=== PATIENT | female | born 1940 | race Caucasian/White ===

== ENCOUNTER → 2016-10-15 | Outpatient (CLI) | payer OTHER ==
[~2016-10-15] MED LIST: ACEROLA C500 M2 PO; ACTOS30 MG; ACTOS30 MG PO; ALBUTEROL SULF8.5 GM IH; ALKA-SELTZER H1 EAC1 PO; ALLEGRA180 MG PO; ALTACE10 MG PO; ANORO ELLIPTA1 EACH IH; ANTIVERT25 MG PO; ANUSOL HC,ANUCO25 MG PR; ASCORBIC ACID500 M3 PO; ASPIR-LOW81 MG PO; Antivert PO; Ascorbic Acid,Ester- PO; Aspirin E.C. PO; B COMPLETE1 EACH PO; BENTYL20 MG PO; BENZONATATE200 MG PO; Bactrim,Septra DS 80 PO; Benzonatate PO; CALCARB 600 W-1 EACH PO; CALCIUM 500 +1 EAC4 PO; CALCIUM 500 +1 EACH PO; CETIRIZINE HCL10 M1 PO; CIPRO500 MG PO; CLEOCIN300 MG PO; CLINDAMYCIN HC300 MG PO; COLACE100 MG PO; COUMADIN,JANTOVE4 MG PO; Chronulac,Cephulac,E PO; Claritin,Alavart PO; DAILY VITAMIN1 EAC8 PO; DARVOCET-N 1001 EACH PO; DIAZEPAM5 MG PO; DILAUDID2 MG PO; Dulcolax PO; ECOTRIN81 M1 PO; ELAVIL25 MG PO; ENULOSE10 GM/15 M PO; ENULOSE10 GM/151 PO; ERYTHROMYC1 APPLICAT BOTH EYES; ERYTHROMYCIN O3.5 GM BOTH EYES; Elavil PO; FEOSOL325 MG PO; FLAGYL500 MG PO; FLEXERIL10 MG PO; FLEXERIL5 MG PO; FLOVENT 44120 INHALA IH; FLOVENT DISKUS1 DIS2 IH; FOLIC ACID1 MG PO; Flonase BOTH NARES; Flovent 44 mcg IH; Folic Acid PO; Folvite PO; GABAPENTIN300 MG PO; GLIPIZIDE10 MG PO; GLUCOTROL XL10 MG PO; GLUCOTROL10 MG PO; GLUCOTROL5 MG PO; GLYBURID-METFO1 EAC2 PO; JANUMET 50/11 TABLET PO; JANUVIA100 MG PO; LIDOCAINE HCL20 ML MM; LIDOCAINE700 MG TD; LIDODERM 5% P1 PATCH TD; LIPITOR20 MG; LIPITOR40 MG PO; LOW DOSE ASPIRI81 M1 PO; LYRICA25 MG PO; LYRICA50 MG PO; Lopressor PO; MAGNESIUM CITR296 M1 PO; MECLIZINE HCL25 M3 PO; MECLIZINE HCL25 MG PO; METAMUCIL PACKE1 PKT PO; METOPROLOL SUCC25 MG PO; METOPROLOL TART25 MG PO; METRONIDAZOLE500 MG PO; Metoprolol Tartrate PO; NAPROSYN500 MG PO; NASONEX17 GM NS; NATURAL BALANCE15 ML BOTH EYES; NEURONTIN300 MG PO; NEXIUM40 MG PO; NITROGLYCERIN0.4 MG SL; NITROQUICK0.4 MG SL; NITROSTAT,NITR0.4 M1 SL; NITROSTAT0.4 MG SL; NORCO 5/3251 TABLET PO; Nitrostat,NitroQuick SL; OXAYDO5 MG PO; OXYCODONE HCL5 MG PO; Oscal 500 w/Vitamin PO; Oyst-Cal D, Oscal W/ PO; PERCOCET 5/31 TABLET PO; PRAVASTATIN SOD40 MG PO; PROAIR HFA8.5 GM IH; PROAIR RESPICL90 MCG IH; PROTONIX40 MG PO; PROVENTIL HFA6.7 GM IH; PYRIDOXINE HCL100 MG PO; Protonix PO; Proventil,Ventolin H IH; RAMIPRIL10 MG PO; SINGULAIR10 MG PO; SPIRIVA RESPIMAT4 GM IH; Singulair PO; TESSALON PERLE100 MG PO; TESSALON200 MG PO; THERAGRAN1 TABLET PO; TRADJENTA5 MG PO; TRAMADOL HCL50 MG PO; TRIAMTERENE-HC1 EACH PO; TRICOR145 MG PO; Tessalon Perle PO; Theragran PO; Tylenol Extra Streng PO; ULTRAM50 MG PO; VALIUM5 MG PO; VENTOLIN HFA18 GM IH; VICODIN 5-3001 EACH PO; VICODIN,LORT1 TABLET PO; Vicodin,Norco 5/325 PO; Vitamin B Complex PO; ZOFRAN ODT8 MG PO; ZOFRAN4 MG PO; Zeasorb Antifungal T TP; [UNRECOGNIZED DRUG - OTHER] PO
[2016-10-15 08:48] LABS: HEMATOCRIT 37.4 % (36.0-46.0); MCH 30.4 PG (29.0-34.0); MCHC 32.9 G/DL (30.0-36.0); MCV 92.6 FL (83-99); MEAN PLAT.VOLUME 8.8 uM^3 (9.5-12.4); PLATELET COUNT 178 K/uL (156-360); RBC DIS.WIDTH-CV 14.3 % (11.8-14.6); RBC DIS.WIDTH-SD 48.5 % (39-53); RED BLOOD COUNT 4.04 M/uL (3.80-5.20); WHITE BLOOD COUNT 10.1 K/uL (4.1-10.2)
[2016-10-15 09:05] LABS: INTER. NORMALIZED RATIO 1.1; PROTHROMBIN TIME 11.2 (9.2-11.2); PTT 27.3 (25-32)
== END | disposition home or self-care (01) ==
LOC: OPR 10-07 09:00 → EDSTATUS 10-07 09:00 → OPR 08:16
PROVIDERS: Internal Medicine Pulmonary Disease
PROC: 0BBJ3ZX Excision of Left Lower Lung Lobe, Percutaneous Approach, Diagnostic (ICD-10-PCS; principal; 2016-10-15)
DX: C34.32 Malignant neoplasm of lower lobe, left bronchus or lung (principal); Z87.891 Personal history of nicotine dependence; J84.9 Interstitial pulmonary disease, unspecified; I51.9 Heart disease, unspecified; E11.9 Type 2 diabetes mellitus without complications; I10 Essential (primary) hypertension; Z82.49 Family history of ischemic heart disease and other diseases of the circulatory system; Z88.8 Allergy status to other drugs, medicaments and biological substances; Z88.5 Allergy status to narcotic agent
CPT/HCPCS: 71010; 77012; 85027; 85610; 85730; 87070; 87075; 87205; 88305; 88341 TC; 88342 TC; J3010

== ENCOUNTER 2016-10-18 10:18 | Emergency (ER) | payer OTHER ==
[~2016-10-18] VITALS: Ht 162.6 cm; Wt 110.6 kg
[2016-10-18] MEDS ORDERED: NORCO 5/3251 TABLET PO (13:09)
[2016-10-18] MEDS ORDERED: TRAMADOL HCL50 MG PO (13:33)
[2016-10-18 13:44] VITALS: BP 140/65
== END 2016-10-18 13:45 | disposition home or self-care (01) ==
LOC: EME 10:18
DX: S46.001A Unspecified injury of muscle(s) and tendon(s) of the rotator cuff of right shoulder, initial encounter (principal); M25.511 Pain in right shoulder; X50.9XXA Other and unspecified overexertion or strenuous movements or postures, initial encounter; Y93.E9 Activity, other interior property and clothing maintenance; Z88.6 Allergy status to analgesic agent
CPT/HCPCS: 73030; 93005; 99281; 99284; J2270

== ENCOUNTER 2016-11-28 00:06 | Observation (INO) | payer OTHER ==
[~2016-11-28] VITALS: Ht 152.4 cm; Wt 107.6 kg
[2016-11-28 01:22] LABS: EOSINOPHIL (%) 2.4 % (0-5); EOSINOPHIL COUNT 0.2 K/uL (0-0.3); HEMATOCRIT 38.6 % (36.0-46.0); IMMATURE GRANULOCYTE (%) 0.7 % (0.0-0.7); IMMATURE GRANULOCYTE COUNT 0.1 K/uL; INSTRUMENT ABS NEUTROPHIL CT 6.9 K/uL; LYMPHOCYTE COUNT 1.1 K/uL (1.0-2.8); MCH 30.6 PG (29.0-34.0); MCHC 33.4 G/DL (30.0-36.0); MCV 91.5 FL (83-99); MEAN PLAT.VOLUME 8.8 uM^3 (9.5-12.4); MONOCYTE (%) 7.4 % (3-12); MONOCYTE COUNT 0.7 K/uL (0-0.8); NEUTROPHIL (%) 77.1 % (45-76); NEUTROPHIL COUNT 6.9 K/uL (1.8-6.4); PLATELET COUNT 183 K/uL (156-360); RED BLOOD COUNT 4.22 M/uL (3.80-5.20)
[2016-11-28 01:37] LABS: CHLORIDE 103 mEq/L (99-109); POTASSIUM 4.3 mEq/L (3.7-5.4); SODIUM 137 mEq/L (136-147)
[2016-11-28 01:40] LABS: GLUCOSE 240 mg/dL (70-99)
[2016-11-28 01:41] LABS: ANION GAP 12 MEQ/L (2-14); TOTAL BILIRUBIN 0.5 mg/dL (0.0-1.0)
[2016-11-28 01:43] LABS: ALKALINE PHOSPHATASE 84 IU/L (3-129); GFR ESTIMATE (CALCULATED) 51 mL/min/
[2016-11-28 01:44] LABS: UREA NITROGEN (BUN) 26 mg/dL (9-23)
[2016-11-28 01:45] LABS: DIRECT BILIRUBIN 0.2 mg/dL (0.0-0.3)
[2016-11-28 01:47] LABS: LIPASE 19 U/L (1.0-51.0)
[2016-11-28 01:53] LABS: TROP-I INTERPRETATION NEGATIVE; TROPONIN-I < 0.01 ng/mL (0.0-0.30)
[2016-11-28 02:47] LABS: ADD MIUA? NO; BILIRUBIN NEGATIVE; BLOOD NEGATIVE; COLOR YELLOW ((YELLOW)); GLUCOSE (STRIP) 50; KETONES NEGATIVE; LEUKOCYTES NEGATIVE; NITRITE NEGATIVE; PROTEIN (STRIP) 30; SPECIFIC GRAVITY 1.016 (1.000-1.030); UCUL ADDED? NO; UROBILINOGEN 0.2 MG/DL (0.2-1.0)
[2016-11-28] MEDS ORDERED: BENZONATATE200 MG PO (08:21)
[2016-11-28] MEDS ORDERED: GLIPIZIDE5 MG PO (08:21)
[2016-11-28] MEDS ORDERED: ZEASORB POWDE70.9 GM TP (08:24)
[2016-11-28] MEDS ORDERED: TRADJENTA5 MG PO (08:25)
[2016-11-28] MEDS ORDERED: PRAVACHOL40 MG PO (08:25)
[2016-11-28 08:30] VITALS: BP 133/60
[2016-11-28 11:13] VITALS: BP 123/60
[2016-11-28 12:37] LABS: POINT-OF-CARE METER ID UU14162513
[2016-11-28 12:59] LABS: TROP-I INTERPRETATION NEGATIVE; TROPONIN-I < 0.01 ng/mL (0.0-0.30)
[2016-11-28 15:25] VITALS: BP 123/69
[2016-11-28 16:12] LABS: POINT-OF-CARE METER ID UU13113831
[2016-11-28 17:55] LABS: POINT-OF-CARE METER ID UU14162513
[2016-11-28 18:53] LABS: TROP-I INTERPRETATION NEGATIVE; TROPONIN-I 0.01 ng/mL (0.0-0.30)
[2016-11-28 19:00] VITALS: BP 103/59
[2016-11-28 21:02] LABS: POINT-OF-CARE METER ID UU13113831
[2016-11-28 23:42] VITALS: BP 125/67
[2016-11-29 03:50] VITALS: BP 118/70
[2016-11-29 08:11] VITALS: BP 128/69
[2016-11-29 12:43] LABS: POINT-OF-CARE METER ID UU13113831
[2016-11-29 15:31] VITALS: BP 125/87
[2016-11-29 17:01] LABS: POINT-OF-CARE METER ID UU13113831
[2016-11-29 19:00] VITALS: BP 128/74
[2016-11-30 04:00] VITALS: BP 117/57
[2016-11-30 07:40] VITALS: BP 113/59
[2016-11-30 08:24] LABS: Estimated Average Glucose 200 mg/dL (70-123); HEMOGLOBIN A1c (GLYCOHEMOGLOB) 8.6 % HGB (Below 5.7)
[2016-11-30 09:01] LABS: ANION GAP 9 MEQ/L (2-14); CHLORIDE 101 MEQ/L (99-109); GFR ESTIMATE (CALCULATED) 36 mL/min/; GLUCOSE 144 mg/dL (70-99); POTASSIUM 4.8 MEQ/L (3.7-5.4); SAMPLE HEMOLYSIS CHECK 0; SAMPLE ICTERIC CHECK 0; SAMPLE LIPEMIA CHECK 0; SODIUM 136 MEQ/L (136-147); UREA NITROGEN (BUN) 37 mg/dL (9-23)
[2016-11-30 11:47] VITALS: BP 151/69
[2016-11-30 12:17] LABS: POINT-OF-CARE METER ID UU13113831
[2016-11-30] MEDS ORDERED: SUCRALFATE1 GM/10 ML PO (12:26)
== END 2016-11-30 14:30 | disposition home or self-care (01) ==
LOC: EME 00:06 → EDOF 05:15 → 5WEST 05:15 → EDOF 05:15 → 5WEST 08:20
PROVIDERS: Emergency Medicine; Hospitalist; Internal Medicine
DX: C34.92 Malignant neoplasm of unspecified part of left bronchus or lung (principal); R07.89 Other chest pain; N17.9 Acute kidney failure, unspecified; K20.9 Esophagitis, unspecified; E11.42 Type 2 diabetes mellitus with diabetic polyneuropathy; E11.65 Type 2 diabetes mellitus with hyperglycemia; R10.13 Epigastric pain; R13.10 Dysphagia, unspecified; K21.9 Gastro-esophageal reflux disease without esophagitis; I10 Essential (primary) hypertension; I25.2 Old myocardial infarction; E78.5 Hyperlipidemia, unspecified; J44.9 Chronic obstructive pulmonary disease, unspecified; I25.10 Atherosclerotic heart disease of native coronary artery without angina pectoris; E66.01 Morbid (severe) obesity due to excess calories; Z68.42 Body mass index [BMI] 45.0-49.9, adult; I87.8 Other specified disorders of veins; Z96.653 Presence of artificial knee joint, bilateral; Z87.891 Personal history of nicotine dependence; Z79.4 Long term (current) use of insulin; F32.9 Major depressive disorder, single episode, unspecified
CPT/HCPCS: 71010; 71020; 74177; 80048; 80076; 81003; 82948; 83036; 83690; 84484; 85025; 93005; 94640; 99202; 99281; 99285; G0378; J1650; J1815; S0028

== ENCOUNTER 2016-12-19 11:40 | Day surgery (SDC) | payer OTHER ==
[~2016-12-19] VITALS: Ht 162.6 cm; Wt 108.5 kg
[~2016-12-19 11:40] MED LIST changes: +GLIPIZIDE5 MG PO; +PRAVACHOL40 MG PO; +SUCRALFATE1 GM/10 ML PO; +ZEASORB POWDE70.9 GM TP
[2016-12-19 12:38] LABS: HEMATOCRIT 37.6 % (36.0-46.0); MCH 30.5 PG (29.0-34.0); MCV 92.4 FL (83-99); MEAN PLAT.VOLUME 8.6 uM^3 (9.5-12.4); PLATELET COUNT 172 K/uL (156-360); RBC DIS.WIDTH-CV 14.2 % (11.8-14.6); RBC DIS.WIDTH-SD 47.9 % (39-53); RED BLOOD COUNT 4.07 M/uL (3.80-5.20); WHITE BLOOD COUNT 8.6 K/uL (4.1-10.2)
[2016-12-19 12:53] LABS: INTER. NORMALIZED RATIO 1.1; PROTHROMBIN TIME 11.6 (9.2-11.2); PTT 27.1 (25-32)
[2016-12-19 12:54] VITALS: BP 147/75
[2016-12-19 12:54] LABS: CHLORIDE 104 mEq/L (99-109); POTASSIUM 4.5 mEq/L (3.7-5.4); SODIUM 137 mEq/L (136-147)
[2016-12-19 12:56] LABS: GLUCOSE 144 mg/dL (70-99)
[2016-12-19 12:57] LABS: ANION GAP 9 MEQ/L (2-14)
[2016-12-19 12:58] LABS: TOTAL BILIRUBIN 0.6 mg/dL (0.0-1.0)
[2016-12-19 12:59] LABS: ALKALINE PHOSPHATASE 75 IU/L (3-129)
[2016-12-19 13:00] LABS: GFR ESTIMATE (CALCULATED) 57 mL/min/
[2016-12-19 13:01] LABS: UREA NITROGEN (BUN) 14 mg/dL (9-23)
[2016-12-19 16:19] LABS: POINT-OF-CARE METER ID UU13113675
[2016-12-19] MEDS ORDERED: NORCO 5/3251 TABLET PO (16:42)
[2016-12-19] MEDS ORDERED: COLACE100 MG PO (16:42)
[2016-12-19 18:25] VITALS: BP 160/72
[2016-12-19 19:40] VITALS: BP 128/62
[2016-12-19 20:40] VITALS: BP 149/70
== END 2016-12-19 20:40 | disposition home or self-care (01) ==
LOC: SDC 11:40
PROVIDERS: Thoracic Surgery (Cardiothoracic Vascular Surgery)
PROC: 07B74ZX Excision of Thorax Lymphatic, Percutaneous Endoscopic Approach, Diagnostic (ICD-10-PCS; principal; 2016-12-19)
DX: C34.32 Malignant neoplasm of lower lobe, left bronchus or lung (principal); C77.1 Secondary and unspecified malignant neoplasm of intrathoracic lymph nodes; J44.9 Chronic obstructive pulmonary disease, unspecified; Z87.891 Personal history of nicotine dependence; E11.9 Type 2 diabetes mellitus without complications; I12.9 Hypertensive chronic kidney disease with stage 1 through stage 4 chronic kidney disease, or unspecified chronic kidney disease; N18.9 Chronic kidney disease, unspecified; I25.10 Atherosclerotic heart disease of native coronary artery without angina pectoris; Z87.19 Personal history of other diseases of the digestive system; Z88.5 Allergy status to narcotic agent; Z88.8 Allergy status to other drugs, medicaments and biological substances; Z82.3 Family history of stroke; Z83.3 Family history of diabetes mellitus; Z82.49 Family history of ischemic heart disease and other diseases of the circulatory system
CPT/HCPCS: 80053; 82948; 85027; 85610; 85730; 86900; 86901; 88305; 88312; 88341 TC; 88342 TC; J0330; J0690; J1170; J2250; J2405; J3010

== ENCOUNTER 2016-12-20 02:50 | Emergency (ER) | payer OTHER ==
[~2016-12-20] VITALS: Ht 162.6 cm; Wt 108.1 kg
[2016-12-20 04:57] LABS: EOSINOPHIL (%) 0.6 % (0-5); EOSINOPHIL COUNT 0.1 K/uL (0-0.3); HEMATOCRIT 35.8 % (36.0-46.0); IMMATURE GRANULOCYTE (%) 0.4 % (0.0-0.7); INSTRUMENT ABS NEUTROPHIL CT 7.4 K/uL; MCH 30.5 PG (29.0-34.0); MCHC 33.2 G/DL (30.0-36.0); MCV 91.8 FL (83-99); MONOCYTE (%) 8.6 % (3-12); MONOCYTE COUNT 0.8 K/uL (0-0.8); NEUTROPHIL (%) 79.3 % (45-76); NEUTROPHIL COUNT 7.4 K/uL (1.8-6.4); RBC DIS.WIDTH-CV 14.2 % (11.8-14.6); RBC DIS.WIDTH-SD 47.6 % (39-53); WHITE BLOOD COUNT 9.4 K/uL (4.1-10.2)
[2016-12-20 05:14] LABS: CHLORIDE 102 mEq/L (99-109); POTASSIUM 4.6 mEq/L (3.7-5.4); SODIUM 135 mEq/L (136-147)
[2016-12-20 05:17] LABS: ANION GAP 10 MEQ/L (2-14)
[2016-12-20 05:19] LABS: GFR ESTIMATE (CALCULATED) 51 mL/min/
[2016-12-20 05:20] LABS: UREA NITROGEN (BUN) 15 mg/dL (9-23)
[2016-12-20 05:21] LABS: GLUCOSE 230 mg/dL (70-99)
[2016-12-20 05:41] LABS: PLAT.SUFFICIENCY DECREASED; PLATELET CLUMPS PRESENT - PLATELET COUNTS APPEARS DECREASED; PLATELET COUNT UNABLE TO REPORT K/uL (156-360)
[2016-12-20 07:23] VITALS: BP 133/64
== END 2016-12-20 07:25 | disposition home or self-care (01) ==
LOC: EME 02:50
PROVIDERS: Emergency Medicine
DX: L76.22 Postprocedural hemorrhage of skin and subcutaneous tissue following other procedure (principal); Y84.8 Other medical procedures as the cause of abnormal reaction of the patient, or of later complication, without mention of misadventure at the time of the procedure; B88.8 Other specified infestations; E11.9 Type 2 diabetes mellitus without complications; J44.9 Chronic obstructive pulmonary disease, unspecified; I25.2 Old myocardial infarction; Z98.61 Coronary angioplasty status; Z87.891 Personal history of nicotine dependence
CPT/HCPCS: 71010; 71260; 80048; 85025; 99281; 99284; J7030

== ENCOUNTER 2017-01-02 11:13 | Emergency (ER) | payer OTHER ==
[~2017-01-02] VITALS: Ht 162.6 cm; Wt 106.6 kg
[2017-01-02 12:51] LABS: EOSINOPHIL (%) 2.9 % (0-5); EOSINOPHIL COUNT 0.2 K/uL (0-0.3); HEMATOCRIT 38.2 % (36.0-46.0); IMMATURE GRANULOCYTE (%) 0.3 % (0.0-0.7); INSTRUMENT ABS NEUTROPHIL CT 5.8 K/uL; LYMPHOCYTE COUNT 1.3 K/uL (1.0-2.8); MCH 30.1 PG (29.0-34.0); MCHC 32.7 G/DL (30.0-36.0); MEAN PLAT.VOLUME 8.8 uM^3 (9.5-12.4); MONOCYTE (%) 6.2 % (3-12); MONOCYTE COUNT 0.5 K/uL (0-0.8); NEUTROPHIL (%) 73.9 % (45-76); NEUTROPHIL COUNT 5.8 K/uL (1.8-6.4); RBC DIS.WIDTH-CV 13.8 % (11.8-14.6); RED BLOOD COUNT 4.15 M/uL (3.80-5.20); WHITE BLOOD COUNT 7.9 K/uL (4.1-10.2)
[2017-01-02 12:53] LABS: PLATELET COUNT 198 K/uL (156-360)
[2017-01-02 13:01] LABS: CHLORIDE 107 mEq/L (99-109); POTASSIUM 5.2 mEq/L (3.7-5.4); SODIUM 141 mEq/L (136-147)
[2017-01-02 13:02] LABS: GLUCOSE 159 mg/dL (70-99)
[2017-01-02 13:04] LABS: ANION GAP 9 MEQ/L (2-14)
[2017-01-02 13:06] LABS: GFR ESTIMATE (CALCULATED) > 59 mL/min/
[2017-01-02 13:07] LABS: UREA NITROGEN (BUN) 13 mg/dL (9-23)
[2017-01-02] MEDS ORDERED: TYLENOL WITH C1 EACH PO (13:33)
[2017-01-02 13:39] VITALS: BP 143/81
== END 2017-01-02 13:50 | disposition home or self-care (01) ==
LOC: EME 11:13
PROVIDERS: Emergency Medicine
DX: S40.011A Contusion of right shoulder, initial encounter (principal); S70.01XA Contusion of right hip, initial encounter; W18.30XA Fall on same level, unspecified, initial encounter; Y92.000 Kitchen of unspecified non-institutional (private) residence as the place of occurrence of the external cause; I25.2 Old myocardial infarction; K21.9 Gastro-esophageal reflux disease without esophagitis; J44.9 Chronic obstructive pulmonary disease, unspecified; I10 Essential (primary) hypertension; E11.9 Type 2 diabetes mellitus without complications; Z86.718 Personal history of other venous thrombosis and embolism; Z86.711 Personal history of pulmonary embolism; Z95.5 Presence of coronary angioplasty implant and graft
CPT/HCPCS: 70450; 73030; 73502; 80048; 85025; 93005; 99281; 99284; G8978 GP CI; G8979 GP CH; G8980 GP CI; G8987 GO CH; G8988 GO CH

== ENCOUNTER 2017-02-10 13:39 | Inpatient (IN) | payer OTHER ==
[~2017-02-10] VITALS: Ht 162.6 cm; Wt 105.5 kg
[~2017-02-10 13:39] MED LIST changes: +TYLENOL WITH C1 EACH PO
[2017-02-10 14:38] LABS: EOSINOPHIL (%) 1.2 % (0-5); HEMATOCRIT 33.5 % (36.0-46.0); IMMATURE GRANULOCYTE (%) 0.9 % (0.0-0.7); INSTRUMENT ABS NEUTROPHIL CT 2.2 K/uL; LYMPHOCYTE COUNT 0.6 K/uL (1.0-2.8); MCH 29.8 PG (29.0-34.0); MCHC 33.7 G/DL (30.0-36.0); MCV 88.4 FL (83-99); MEAN PLAT.VOLUME 9.3 uM^3 (9.5-12.4); MONOCYTE COUNT 0.4 K/uL (0-0.8); NEUTROPHIL (%) 67.5 % (45-76); NEUTROPHIL COUNT 2.2 K/uL (1.8-6.4); PLATELET COUNT 136 K/uL (156-360); RBC DIS.WIDTH-CV 13.7 % (11.8-14.6); RBC DIS.WIDTH-SD 43.9 % (39-53); RED BLOOD COUNT 3.79 M/uL (3.80-5.20); WHITE BLOOD COUNT 3.3 K/uL (4.1-10.2)
[2017-02-10 14:44] LABS: INTER. NORMALIZED RATIO 1.3; PROTHROMBIN TIME 14.4 SEC (10.2-12.9)
[2017-02-10 15:00] LABS: TROP-I INTERPRETATION NEGATIVE; TROPONIN-I < 0.01 ng/mL (0.0-0.30)
[2017-02-10 15:18] LABS: ALKALINE PHOSPHATASE 65 IU/L (3-129); ANION GAP 10 MEQ/L (2-14); CHLORIDE 104 MEQ/L (99-109); GFR ESTIMATE (CALCULATED) 57 mL/min/; GLUCOSE 181 mg/dL (70-99); LIPASE 9 U/L (1.0-51.0); POTASSIUM 4.4 MEQ/L (3.7-5.4); SAMPLE HEMOLYSIS CHECK 0; SAMPLE ICTERIC CHECK 0; SAMPLE LIPEMIA CHECK 0; SODIUM 135 MEQ/L (136-147); TOTAL BILIRUBIN 0.7 MG/DL (0.0-1.0); UREA NITROGEN (BUN) 28 mg/dL (9-23)
[2017-02-10 16:52] LABS: ADD MIUA? YES; BILIRUBIN NEGATIVE; BLOOD NEGATIVE; COLOR AMBER ((YELLOW)); GLUCOSE (STRIP) 50; KETONES NEGATIVE; LEUKOCYTES NEGATIVE; NITRITE NEGATIVE; PROTEIN (STRIP) 30; SPECIFIC GRAVITY 1.017 (1.000-1.030); UROBILINOGEN 0.2 MG/DL (0.2-1.0)
[2017-02-10 17:00] LABS: BACTERIA 1+ /HPF; CALCIUM OXALATE CRYSTALS 1+ /HPF; EPITHELIAL CELLS 1+ /HPF; HYALINE CASTS 30-40 /LPF; MUCUS 1+ /LPF; RED BLOOD CELLS 0-5 /HPF (0-5); UCUL ADDED? NO; WHITE BLOOD CELLS 0-5 /HPF (0-5)
[2017-02-10] MEDS ORDERED: TRADJENTA5 MG PO (17:04)
[2017-02-10] MEDS ORDERED: GLUCOTROL XL10 MG PO (17:06)
[2017-02-10] MEDS ORDERED: COLACE100 MG PO (17:08)
[2017-02-10] MEDS ORDERED: MYCOSTATIN 100,60 ML PO (17:10)
[2017-02-10] MEDS ORDERED: NOVOLOG PE100 UNITS/ SC (17:11)
[2017-02-10] MEDS ORDERED: CITRATE OF MAG296 ML PO (17:12)
[2017-02-10] MEDS ORDERED: ALKA-SELTZER H1 EAC1 PO (17:12)
[2017-02-10 21:27] VITALS: BP 125/55
[2017-02-11] VITALS (7 sets, daily range): BP systolic 90–148; BP diastolic 47–65
[2017-02-11 02:45] LABS: INTER. NORMALIZED RATIO 1.4; PROTHROMBIN TIME 15.5 SEC (10.2-12.9)
[2017-02-11 02:50] LABS: PTT 55.8 SEC (25-37)
[2017-02-11 04:40] LABS: POINT-OF-CARE METER ID UU13113781
[2017-02-11 04:40] LABS: POINT-OF-CARE METER ID UU13113781
[2017-02-11 09:17] LABS: HEMATOCRIT 29.3 % (36.0-46.0); MCHC 34.5 G/DL (30.0-36.0); MCV 89.9 FL (83-99); MEAN PLAT.VOLUME 9.7 uM^3 (9.5-12.4); PLATELET COUNT 129 K/uL (156-360); RBC DIS.WIDTH-SD 45.6 % (39-53); RED BLOOD COUNT 3.26 M/uL (3.80-5.20); WHITE BLOOD COUNT 2.5 K/uL (4.1-10.2)
[2017-02-11 10:19] LABS: ANION GAP 10 MEQ/L (2-14); CHLORIDE 108 MEQ/L (99-109); GFR ESTIMATE (CALCULATED) > 59 mL/min/; GLUCOSE 176 mg/dL (70-99); SAMPLE HEMOLYSIS CHECK 0; SAMPLE ICTERIC CHECK 0; SAMPLE LIPEMIA CHECK 0; SODIUM 137 MEQ/L (136-147); UREA NITROGEN (BUN) 22 mg/dL (9-23)
[2017-02-11 16:01] LABS: POINT-OF-CARE METER ID UU13113803
[2017-02-11 16:09] LABS: INTER. NORMALIZED RATIO 1.3; PROTHROMBIN TIME 14.5 SEC (10.2-12.9)
[2017-02-11 16:12] LABS: PTT 41.2 SEC (25-37)
[2017-02-11 20:54] LABS: POINT-OF-CARE METER ID UU13113781
[2017-02-12 00:57] LABS: INTER. NORMALIZED RATIO 1.3; PROTHROMBIN TIME 14.3 SEC (10.2-12.9)
[2017-02-12 01:04] LABS: PTT 77.7 SEC (25-37)
[2017-02-12 05:07] VITALS: BP 124/64
[2017-02-12 05:50] LABS: EOSINOPHIL (%) 2.8 % (0-5); EOSINOPHIL COUNT 0.1 K/uL (0-0.3); HEMATOCRIT 28.3 % (36.0-46.0); IMMATURE GRANULOCYTE (%) 0.8 % (0.0-0.7); INSTRUMENT ABS NEUTROPHIL CT 1.6 K/uL; LYMPHOCYTE COUNT 0.5 K/uL (1.0-2.8); MCH 29.8 PG (29.0-34.0); MCHC 33.2 G/DL (30.0-36.0); MCV 89.8 FL (83-99); MEAN PLAT.VOLUME 9.3 uM^3 (9.5-12.4); MONOCYTE (%) 13.3 % (3-12); MONOCYTE COUNT 0.3 K/uL (0-0.8); NEUTROPHIL (%) 62.2 % (45-76); NEUTROPHIL COUNT 1.6 K/uL (1.8-6.4); PLATELET COUNT 137 K/uL (156-360); RBC DIS.WIDTH-CV 14.1 % (11.8-14.6); RBC DIS.WIDTH-SD 45.8 % (39-53); RED BLOOD COUNT 3.15 M/uL (3.80-5.20); WHITE BLOOD COUNT 2.5 K/uL (4.1-10.2)
[2017-02-12 06:19] LABS: ANION GAP 8 MEQ/L (2-14); CHLORIDE 112 MEQ/L (99-109); GFR ESTIMATE (CALCULATED) 51 mL/min/; GLUCOSE 121 mg/dL (70-99); POTASSIUM 4.1 MEQ/L (3.7-5.4); SAMPLE HEMOLYSIS CHECK 0; SAMPLE ICTERIC CHECK 0; SAMPLE LIPEMIA CHECK 0; SODIUM 142 MEQ/L (136-147); UREA NITROGEN (BUN) 20 mg/dL (9-23)
[2017-02-12 07:31] VITALS: BP 118/57
[2017-02-12] MEDS ORDERED: NORCO 5/3251 TABLET PO (09:34)
[2017-02-12 10:30] VITALS: BP 118/60
[2017-02-12 12:16] LABS: POINT-OF-CARE USER ID NUTSLF44
[2017-02-12 16:00] VITALS: BP 112/58
[2017-02-12 17:18] LABS: POINT-OF-CARE USER ID NUTSLF44
[2017-02-12 19:10] VITALS: BP 106/58
[2017-02-13 00:48] VITALS: BP 119/58
[2017-02-13 04:30] VITALS: BP 103/51
[2017-02-13 07:00] VITALS: BP 108/58
[2017-02-13 07:49] LABS: POINT-OF-CARE METER ID UU13113698
[2017-02-13 12:24] VITALS: BP 106/52
[2017-02-13 12:51] LABS: POINT-OF-CARE METER ID UU13113698
[2017-02-13 16:28] VITALS: BP 114/51
[2017-02-13 20:21] VITALS: BP 124/58
[2017-02-13 21:07] LABS: POINT-OF-CARE METER ID UU13113698
[2017-02-14 00:11] VITALS: BP 134/65
[2017-02-14 04:00] VITALS: BP 118/55
[2017-02-14 04:44] LABS: EOSINOPHIL COUNT 0.1 K/uL (0-0.3); HEMATOCRIT 32.6 % (36.0-46.0); IMMATURE GRANULOCYTE (%) 0.6 % (0.0-0.7); INSTRUMENT ABS NEUTROPHIL CT 2.3 K/uL; LYMPHOCYTE COUNT 0.6 K/uL (1.0-2.8); MCH 29.9 PG (29.0-34.0); MCV 87.9 FL (83-99); MEAN PLAT.VOLUME 8.8 uM^3 (9.5-12.4); MONOCYTE (%) 15.9 % (3-12); MONOCYTE COUNT 0.6 K/uL (0-0.8); NEUTROPHIL (%) 65.1 % (45-76); NEUTROPHIL COUNT 2.3 K/uL (1.8-6.4); PLATELET COUNT 140 K/uL (156-360); RBC DIS.WIDTH-CV 14.6 % (11.8-14.6); RBC DIS.WIDTH-SD 44.9 % (39-53); RED BLOOD COUNT 3.71 M/uL (3.80-5.20); WHITE BLOOD COUNT 3.5 K/uL (4.1-10.2)
[2017-02-14 07:23] VITALS: BP 133/58
[2017-02-14] MEDS ORDERED: DILTIAZEM 24HR120 MG PO (11:41)
[2017-02-14] MEDS ORDERED: ELIQUIS5 MG PO (11:41)
[2017-02-14 11:59] LABS: POINT-OF-CARE METER ID UU13113698
[2017-02-14 12:00] VITALS: BP 124/61
[2017-02-14 16:00] VITALS: BP 118/77
== END 2017-02-14 18:59 | DRG 309 ==
LOC: EME 13:39 → EDOF 17:58 → 4EAST 17:58 → ENRESERV 18:03 → 4EAST 21:21
PROVIDERS: Emergency Medicine; Pediatrics; Physician Assistant
PROC: 02HV33Z Insertion of Infusion Device into Superior Vena Cava, Percutaneous Approach (ICD-10-PCS; principal; 2017-02-12)
PROC: 0JH60XZ Insertion of Tunneled Vascular Access Device into Chest Subcutaneous Tissue and Fascia, Open Approach (ICD-10-PCS; principal; 2017-02-12)
DX: I48.91 Unspecified atrial fibrillation (principal); C34.92 Malignant neoplasm of unspecified part of left bronchus or lung; H81.10 Benign paroxysmal vertigo, unspecified ear; I10 Essential (primary) hypertension; J44.9 Chronic obstructive pulmonary disease, unspecified; E11.40 Type 2 diabetes mellitus with diabetic neuropathy, unspecified; E87.5 Hyperkalemia; K21.0 Gastro-esophageal reflux disease with esophagitis; E11.65 Type 2 diabetes mellitus with hyperglycemia; E66.01 Morbid (severe) obesity due to excess calories; E78.5 Hyperlipidemia, unspecified; R13.10 Dysphagia, unspecified; Z87.891 Personal history of nicotine dependence; E78.00 Pure hypercholesterolemia, unspecified; I25.10 Atherosclerotic heart disease of native coronary artery without angina pectoris; I25.2 Old myocardial infarction; I87.8 Other specified disorders of veins
CPT/HCPCS: 36415; 71010; 77336; 77385; 80048; 80053; 80069; 80076; 80162; 81003; 82948; 83605; 83690; 83880; 84443; 84484; 85025; 85025 91; 85027; 85610; 85730; 86900; 86901; 87086; 93005; 94640; 94640 76; 99281; 99285; J0690; J1160; J1815; J7030; J7120

== ENCOUNTER 2017-04-04 02:24 | Observation (INO) | payer OTHER ==
[~2017-04-04] VITALS: Ht 162.6 cm; Wt 102.1 kg
[~2017-04-04 02:24] MED LIST changes: +CITRATE OF MAG296 ML PO; +DILTIAZEM 24HR120 MG PO; +ELIQUIS5 MG PO; +MYCOSTATIN 100,60 ML PO; +NOVOLOG PE100 UNITS/ SC
[2017-04-04 03:04] LABS: HEMATOCRIT 36.8 % (36.0-46.0); MCH 31.7 PG (29.0-34.0); MCV 93.4 FL (83-99); MEAN PLAT.VOLUME 9.5 uM^3 (9.5-12.4); RED BLOOD COUNT 3.94 M/uL (3.80-5.20); WHITE BLOOD COUNT 14.8 K/uL (4.1-10.2)
[2017-04-04 03:19] LABS: CHLORIDE 100 mEq/L (99-109); POTASSIUM 4.3 mEq/L (3.7-5.4); SODIUM 133 mEq/L (136-147)
[2017-04-04 03:21] LABS: GLUCOSE 251 mg/dL (70-99); PLATELET COUNT 68 K/uL (156-360)
[2017-04-04 03:22] LABS: ANION GAP 12 MEQ/L (2-14)
[2017-04-04 03:25] LABS: GFR ESTIMATE (CALCULATED) 39 mL/min/
[2017-04-04 03:26] LABS: TROP-I INTERPRETATION NEGATIVE; TROPONIN-I < 0.01 ng/mL (0.0-0.30)
[2017-04-04 03:28] LABS: UREA NITROGEN (BUN) 37 mg/dL (9-23)
[2017-04-04 05:35] VITALS: BP 187/86
[2017-04-04 06:15] VITALS: BP 146/70
[2017-04-04 08:11] VITALS: BP 121/57
[2017-04-04 08:13] LABS: POINT-OF-CARE METER ID UU14162513
[2017-04-04] MEDS ORDERED: COMPAZINE10 MG PO (11:04)
[2017-04-04] MEDS ORDERED: PRAVASTATIN SOD40 MG PO (11:05)
[2017-04-04] MEDS ORDERED: LEVAQUIN500 MG PO (11:06)
[2017-04-04] MEDS ORDERED: MEDROL4 MG PO (11:08)
[2017-04-04] MEDS ORDERED: RANITIDINE HCL150 M1 PO (11:09)
[2017-04-04] MEDS ORDERED: BENADRYL25 MG PO (11:09)
[2017-04-04 11:51] VITALS: BP 106/58
[2017-04-04 15:20] LABS: TROP-I INTERPRETATION NEGATIVE; TROPONIN-I 0.02 ng/mL (0.0-0.30)
[2017-04-04 15:57] VITALS: BP 127/58
[2017-04-04 17:39] LABS: POINT-OF-CARE METER ID UU14162513
[2017-04-04 20:30] VITALS: BP 115/58
[2017-04-05 00:32] VITALS: BP 153/67
[2017-04-05 00:45] LABS: ADD MIUA? NO; BILIRUBIN NEGATIVE; BLOOD NEGATIVE; COLOR YELLOW ((YELLOW)); GLUCOSE (STRIP) 150; KETONES NEGATIVE; LEUKOCYTES NEGATIVE; NITRITE NEGATIVE; PROTEIN (STRIP) NEGATIVE; SPECIFIC GRAVITY 1.015 (1.000-1.030); UROBILINOGEN 0.2 MG/DL (0.2-1.0)
[2017-04-05 00:46] LABS: UCUL ADDED? NO
[2017-04-05 03:51] VITALS: BP 125/63
[2017-04-05 06:19] LABS: HEMATOCRIT 34.3 % (36.0-46.0); MCH 32.4 PG (29.0-34.0); MCHC 33.8 G/DL (30.0-36.0); MCV 95.8 FL (83-99); MEAN PLAT.VOLUME 10.2 uM^3 (9.5-12.4); PLATELET COUNT 78 K/uL (156-360); RBC DIS.WIDTH-CV 17.2 % (11.8-14.6); RBC DIS.WIDTH-SD 60.3 % (39-53); RED BLOOD COUNT 3.58 M/uL (3.80-5.20); WHITE BLOOD COUNT 5.8 K/uL (4.1-10.2)
[2017-04-05 07:45] VITALS: BP 138/65
[2017-04-05 08:14] LABS: POINT-OF-CARE METER ID UU13113831
[2017-04-05 09:48] LABS: ALKALINE PHOSPHATASE 74 IU/L (3-129); ANION GAP 8 MEQ/L (2-14); CHLORIDE 102 MEQ/L (99-109); GFR ESTIMATE (CALCULATED) 42 mL/min/; GLUCOSE 187 mg/dL (70-99); MAGNESIUM 2.2 mg/dl (1.3-2.7); POTASSIUM 4.5 MEQ/L (3.7-5.4); SAMPLE HEMOLYSIS CHECK 0; SAMPLE ICTERIC CHECK 0; SAMPLE LIPEMIA CHECK 0; SODIUM 136 MEQ/L (136-147); TOTAL BILIRUBIN 0.9 MG/DL (0.0-1.0); UREA NITROGEN (BUN) 37 mg/dL (9-23)
[2017-04-05 12:54] VITALS: BP 126/65
== END 2017-04-05 16:06 | disposition home or self-care (01) ==
LOC: EME 02:24 → EDOF 04:00 → ENRESERV 04:02 → 5WEST 05:07
PROVIDERS: Emergency Medicine; Hospitalist; Internal Medicine; Physician Assistant Medical
DX: R07.81 Pleurodynia (principal); R13.10 Dysphagia, unspecified; E86.0 Dehydration; D72.829 Elevated white blood cell count, unspecified; N17.9 Acute kidney failure, unspecified; E87.1 Hypo-osmolality and hyponatremia; K21.0 Gastro-esophageal reflux disease with esophagitis; I10 Essential (primary) hypertension; D69.59 Other secondary thrombocytopenia; T45.1X5A Adverse effect of antineoplastic and immunosuppressive drugs, initial encounter; C34.90 Malignant neoplasm of unspecified part of unspecified bronchus or lung; J44.9 Chronic obstructive pulmonary disease, unspecified; R09.02 Hypoxemia; Z92.21 Personal history of antineoplastic chemotherapy; Z92.3 Personal history of irradiation; K44.9 Diaphragmatic hernia without obstruction or gangrene; I25.10 Atherosclerotic heart disease of native coronary artery without angina pectoris; Z95.5 Presence of coronary angioplasty implant and graft; I25.2 Old myocardial infarction; E11.9 Type 2 diabetes mellitus without complications; I87.8 Other specified disorders of veins; I73.9 Peripheral vascular disease, unspecified; E78.5 Hyperlipidemia, unspecified; I65.29 Occlusion and stenosis of unspecified carotid artery; Z87.891 Personal history of nicotine dependence; Z96.653 Presence of artificial knee joint, bilateral; Z90.49 Acquired absence of other specified parts of digestive tract; Z79.4 Long term (current) use of insulin; Z83.3 Family history of diabetes mellitus; Z82.0 Family history of epilepsy and other diseases of the nervous system; Z88.5 Allergy status to narcotic agent
CPT/HCPCS: 71020; 71250; 78582; 80048; 80053; 81003; 82948; 83735; 84484; 85027; 93005; 94640; 99281; 99285; A9540; A9567; C9113; G0378; J0360; J1815; J1885; J2405; J2765; J2930; J7030

== ENCOUNTER 2017-04-28 14:12 | Emergency (ER) | payer OTHER ==
[~2017-04-28] VITALS: Ht 157.5 cm; Wt 97.0 kg
[~2017-04-28 14:12] MED LIST changes: +BENADRYL25 MG PO; +COMPAZINE10 MG PO; +LEVAQUIN500 MG PO; +MEDROL4 MG PO; +RANITIDINE HCL150 M1 PO
[2017-04-28 14:52] LABS: HEMATOCRIT 30.1 % (36.0-46.0); MCH 32.6 PG (29.0-34.0); MCHC 32.6 G/DL (30.0-36.0); MEAN PLAT.VOLUME 8.7 uM^3 (9.5-12.4); PLATELET COUNT 94 K/uL (156-360); RBC DIS.WIDTH-CV 18.9 % (11.8-14.6); RBC DIS.WIDTH-SD 69.4 % (39-53); RED BLOOD COUNT 3.01 M/uL (3.80-5.20); WHITE BLOOD COUNT 9.7 K/uL (4.1-10.2)
[2017-04-28 15:01] LABS: CHLORIDE 108 mEq/L (99-109); POTASSIUM 4.5 mEq/L (3.7-5.4); SODIUM 142 mEq/L (136-147)
[2017-04-28 15:03] LABS: GLUCOSE 174 mg/dL (70-99)
[2017-04-28 15:04] LABS: ANION GAP 11 MEQ/L (2-14)
[2017-04-28 15:06] LABS: GFR ESTIMATE (CALCULATED) 33 mL/min/
[2017-04-28 15:07] LABS: UREA NITROGEN (BUN) 26 mg/dL (9-23)
[2017-04-28 15:34] LABS: CREATINE KINASE 51 IU/L (1-294)
[2017-04-28] MEDS ORDERED: LEVAQUIN500 MG PO (19:52)
[2017-04-28 19:59] VITALS: BP 100/68
[2017-04-29] MEDS ORDERED: ANORO ELLIPTA1 EACH IH (09:50)
[2017-04-29] MEDS ORDERED: VENTOLIN HFA18 GM IH (09:52)
== END 2017-04-28 20:16 | disposition home or self-care (01) ==
LOC: EME 14:12
DX: M25.551 Pain in right hip (principal); W06.XXXA Fall from bed, initial encounter; Y92.003 Bedroom of unspecified non-institutional (private) residence as the place of occurrence of the external cause; D64.9 Anemia, unspecified; E11.22 Type 2 diabetes mellitus with diabetic chronic kidney disease; I12.9 Hypertensive chronic kidney disease with stage 1 through stage 4 chronic kidney disease, or unspecified chronic kidney disease; N18.9 Chronic kidney disease, unspecified; Z79.4 Long term (current) use of insulin; J44.9 Chronic obstructive pulmonary disease, unspecified; C34.90 Malignant neoplasm of unspecified part of unspecified bronchus or lung; Z92.21 Personal history of antineoplastic chemotherapy; Z95.5 Presence of coronary angioplasty implant and graft; Z90.49 Acquired absence of other specified parts of digestive tract; Z79.01 Long term (current) use of anticoagulants
CPT/HCPCS: 70450; 71020; 73502; 80048; 82550; 85027; 99281; 99284; J7030

== ENCOUNTER → 2017-04-30 | Outpatient (CLI) | payer OTHER ==
[~2017-04-30] VITALS: Ht 162.6 cm; Wt 87.1 kg
[2017-04-30 10:36] LABS: POINT-OF-CARE METER ID UU14107333
== END | disposition home or self-care (01) ==
LOC: AMB 09:30
PROVIDERS: Internal Medicine Gastroenterology
PROC: 0DJ08ZZ Inspection of Upper Intestinal Tract, Via Natural or Artificial Opening Endoscopic (ICD-10-PCS; principal; 2017-04-30)
DX: K21.0 Gastro-esophageal reflux disease with esophagitis (principal); K44.9 Diaphragmatic hernia without obstruction or gangrene; I10 Essential (primary) hypertension; J44.9 Chronic obstructive pulmonary disease, unspecified; C34.90 Malignant neoplasm of unspecified part of unspecified bronchus or lung; I25.10 Atherosclerotic heart disease of native coronary artery without angina pectoris; E11.40 Type 2 diabetes mellitus with diabetic neuropathy, unspecified; E78.00 Pure hypercholesterolemia, unspecified; E66.01 Morbid (severe) obesity due to excess calories; I73.9 Peripheral vascular disease, unspecified; Z79.84 Long term (current) use of oral hypoglycemic drugs; Z79.82 Long term (current) use of aspirin; Z87.891 Personal history of nicotine dependence
CPT/HCPCS: 82948; 94640

== ENCOUNTER 2017-05-13 12:18 | Inpatient (IN) | payer OTHER ==
[~2017-05-13] VITALS: Ht 162.6 cm; Wt 96.1 kg
[2017-05-13 14:03] LABS: MCH 31.7 PG (29.0-34.0); MCHC 32.9 G/DL (30.0-36.0); MCV 96.3 FL (83-99); MEAN PLAT.VOLUME 8.7 uM^3 (9.5-12.4); PLATELET COUNT 104 K/uL (156-360); RBC DIS.WIDTH-CV 15.5 % (11.8-14.6); RBC DIS.WIDTH-SD 54.4 % (39-53); RED BLOOD COUNT 3.22 M/uL (3.80-5.20); WHITE BLOOD COUNT 8.7 K/uL (4.1-10.2)
[2017-05-13 14:11] LABS: CHLORIDE 105 mEq/L (99-109); SODIUM 139 mEq/L (136-147)
[2017-05-13 14:13] LABS: GLUCOSE 145 mg/dL (70-99)
[2017-05-13 14:14] LABS: ANION GAP 9 MEQ/L (2-14)
[2017-05-13 14:17] LABS: GFR ESTIMATE (CALCULATED) > 59 mL/min/
[2017-05-13 14:18] LABS: UREA NITROGEN (BUN) 16 mg/dL (9-23)
[2017-05-13 14:22] LABS: TROP-I INTERPRETATION NEGATIVE; TROPONIN-I < 0.01 ng/mL (0.0-0.30)
[2017-05-13] MEDS ORDERED: LO-DOSE ASPIRIN81 M2 PO (18:02)
[2017-05-13] MEDS ORDERED: GLIPIZIDE10 MG PO (18:14)
[2017-05-13 18:15] VITALS: BP 125/52
[2017-05-13] MEDS ORDERED: FIBER THERAPY625 MG PO (18:15)
[2017-05-13] MEDS ORDERED: OXYCODONE HCL5 MG PO (18:16)
[2017-05-13] MEDS ORDERED: HYCET 7.5 MG-3473 ML PO (18:18)
[2017-05-13] MEDS ORDERED: [UNRECOGNIZED DRUG - OTHER] PO (18:22)
[2017-05-13] MEDS ORDERED: ALBUTEROL2.5 MG/3 M IH (18:26)
[2017-05-13 23:14] VITALS: BP 96/55
[2017-05-14 03:36] VITALS: BP 132/60
[2017-05-14 06:45] LABS: POINT-OF-CARE METER ID UU14208750
[2017-05-14 06:58] LABS: EOSINOPHIL (%) 1.7 % (0-5); EOSINOPHIL COUNT 0.1 K/uL (0-0.3); HEMATOCRIT 27.7 % (36.0-46.0); IMMATURE GRANULOCYTE (%) 0.3 % (0.0-0.7); INSTRUMENT ABS NEUTROPHIL CT 5.1 K/uL; LYMPHOCYTE COUNT 0.9 K/uL (1.0-2.8); MCH 31.9 PG (29.0-34.0); MCHC 32.1 G/DL (30.0-36.0); MCV 99.3 FL (83-99); MEAN PLAT.VOLUME 9.1 uM^3 (9.5-12.4); MONOCYTE (%) 10.2 % (3-12); MONOCYTE COUNT 0.7 K/uL (0-0.8); NEUTROPHIL COUNT 5.1 K/uL (1.8-6.4); PLATELET COUNT 90 K/uL (156-360); RBC DIS.WIDTH-CV 15.8 % (11.8-14.6); RBC DIS.WIDTH-SD 57.4 % (39-53); RED BLOOD COUNT 2.79 M/uL (3.80-5.20); WHITE BLOOD COUNT 6.9 K/uL (4.1-10.2)
[2017-05-14 07:25] LABS: ALKALINE PHOSPHATASE 63 IU/L (3-129); ANION GAP 10 MEQ/L (2-14); CHLORIDE 107 MEQ/L (99-109); GFR ESTIMATE (CALCULATED) 57 mL/min/; GLUCOSE 139 mg/dL (70-99); SAMPLE HEMOLYSIS CHECK 0; SAMPLE ICTERIC CHECK 0; SAMPLE LIPEMIA CHECK 0; SODIUM 139 MEQ/L (136-147); TOTAL BILIRUBIN 0.7 MG/DL (0.0-1.0); UREA NITROGEN (BUN) 16 mg/dL (9-23)
[2017-05-14 07:50] VITALS: BP 115/51
[2017-05-14 11:30] VITALS: BP 97/51
[2017-05-14 11:47] LABS: POINT-OF-CARE METER ID UU14208750
[2017-05-14 15:45] VITALS: BP 110/69
[2017-05-14 16:48] LABS: POINT-OF-CARE METER ID UU14208750
[2017-05-14 20:00] VITALS: BP 115/53
[2017-05-15] VITALS (9 sets, daily range): BP systolic 107–136; BP diastolic 49–89
[2017-05-15 06:39] LABS: POINT-OF-CARE METER ID UU14208750
[2017-05-15 07:36] LABS: MCHC 31.9 G/DL (30.0-36.0); MCV 97.5 FL (83-99); MEAN PLAT.VOLUME 8.6 uM^3 (9.5-12.4); PLATELET COUNT 95 K/uL (156-360); RBC DIS.WIDTH-CV 15.8 % (11.8-14.6); RBC DIS.WIDTH-SD 56.5 % (39-53); RED BLOOD COUNT 2.77 M/uL (3.80-5.20); WHITE BLOOD COUNT 8.3 K/uL (4.1-10.2)
[2017-05-15 08:01] LABS: ALKALINE PHOSPHATASE 63 IU/L (3-129); ANION GAP 9 MEQ/L (2-14); CHLORIDE 105 MEQ/L (99-109); GFR ESTIMATE (CALCULATED) 46 mL/min/; GLUCOSE 151 mg/dL (70-99); POTASSIUM 4.2 MEQ/L (3.7-5.4); SAMPLE HEMOLYSIS CHECK 0; SAMPLE ICTERIC CHECK 0; SAMPLE LIPEMIA CHECK 0; SODIUM 137 MEQ/L (136-147); TOTAL BILIRUBIN 0.6 MG/DL (0.0-1.0); UREA NITROGEN (BUN) 19 mg/dL (9-23)
[2017-05-15 11:41] LABS: POINT-OF-CARE METER ID UU14208750
[2017-05-15 16:59] LABS: POINT-OF-CARE METER ID UU14208750; POINT-OF-CARE USER ID PUTDRM
[2017-05-15 19:52] LABS: BASE EXCESS -0.8 mEq/L (-3 to +3); BICARBONATE 23.2 mEq/L (22-26); CARBOXY HGB 2.7 % (0-5); METHEMOGLOBIN 1.6 % (0-1.5); PCO2 35 mm Hg (35-45); PO2 52 mm Hg (80-100); pH 7.43 (7.35-7.45)
[2017-05-15 19:53] LABS: COMMENTS - BLOOD GASES A+C+; DEVICE NON REBREATHER; FI02 100 %; O2 FLOW 15 L/MIN; SITE LR
[2017-05-15 20:07] LABS: HEMATOCRIT 28.5 % (36.0-46.0); MCH 31.1 PG (29.0-34.0); MCHC 31.9 G/DL (30.0-36.0); MCV 97.3 FL (83-99); MEAN PLAT.VOLUME 8.6 uM^3 (9.5-12.4); PLATELET COUNT 116 K/uL (156-360); RBC DIS.WIDTH-CV 15.9 % (11.8-14.6); RBC DIS.WIDTH-SD 57.1 % (39-53); RED BLOOD COUNT 2.93 M/uL (3.80-5.20); WHITE BLOOD COUNT 13.9 K/uL (4.1-10.2)
[2017-05-15 20:15] LABS: ANION GAP 9 MEQ/L (2-14); CHLORIDE 100 MEQ/L (99-109); POTASSIUM 4.3 MEQ/L (3.7-5.4); SAMPLE HEMOLYSIS CHECK 0; SAMPLE ICTERIC CHECK 0; SAMPLE LIPEMIA CHECK 0; SODIUM 131 MEQ/L (136-147)
[2017-05-15 20:21] LABS: GFR ESTIMATE (CALCULATED) 46 mL/min/; GLUCOSE 125 mg/dL (70-99); UREA NITROGEN (BUN) 21 mg/dL (9-23)
[2017-05-15 20:25] LABS: TROP-I INTERPRETATION NEGATIVE; TROPONIN-I 0.04 ng/mL (0.0-0.30)
[2017-05-15 21:08] LABS: POINT-OF-CARE METER ID UU14174216
[2017-05-16] VITALS (13 sets, daily range): BP systolic 78–131; BP diastolic 50–94
[2017-05-16 05:02] LABS: EOSINOPHIL (%) 1.6 % (0-5); EOSINOPHIL COUNT 0.2 K/uL (0-0.3); HEMATOCRIT 27.5 % (36.0-46.0); IMMATURE GRANULOCYTE (%) 0.7 % (0.0-0.7); IMMATURE GRANULOCYTE COUNT 0.1 K/uL; INSTRUMENT ABS NEUTROPHIL CT 10.9 K/uL; LYMPHOCYTE COUNT 1.3 K/uL (1.0-2.8); MCHC 32.4 G/DL (30.0-36.0); MCV 95.8 FL (83-99); MEAN PLAT.VOLUME 8.7 uM^3 (9.5-12.4); MONOCYTE (%) 4.7 % (3-12); MONOCYTE COUNT 0.6 K/uL (0-0.8); NEUTROPHIL (%) 82.7 % (45-76); NEUTROPHIL COUNT 10.9 K/uL (1.8-6.4); PLATELET COUNT 102 K/uL (156-360); RBC DIS.WIDTH-CV 15.7 % (11.8-14.6); RBC DIS.WIDTH-SD 55.7 % (39-53); RED BLOOD COUNT 2.87 M/uL (3.80-5.20); WHITE BLOOD COUNT 13.1 K/uL (4.1-10.2)
[2017-05-16 05:39] LABS: CHLORIDE 100 mEq/L (99-109); POTASSIUM 4.3 mEq/L (3.7-5.4); SODIUM 131 mEq/L (136-147)
[2017-05-16 05:40] LABS: GLUCOSE 131 mg/dL (70-99)
[2017-05-16 05:42] LABS: ANION GAP 11 MEQ/L (2-14)
[2017-05-16 05:44] LABS: GFR ESTIMATE (CALCULATED) 33 mL/min/
[2017-05-16 05:45] LABS: UREA NITROGEN (BUN) 25 mg/dL (9-23)
[2017-05-16 05:57] LABS: BASE EXCESS -0.1 mEq/L (-3 to +3); BICARBONATE 23.6 mEq/L (22-26); CARBOXY HGB 2.7 % (0-5); METHEMOGLOBIN 1.4 % (0-1.5); PCO2 34 mm Hg (35-45); PO2 63 mm Hg (80-100); pH 7.45 (7.35-7.45)
[2017-05-16 05:58] LABS: DEVICE HHFNC; FI02 100 %; O2 FLOW 50 L/MIN; SITE A+C+; TOTAL RESP RATE 25 resp/min
[2017-05-16 06:00] LABS: METH RESISTANT S AUREUS PCR NEGATIVE (NEGATIVE)
[2017-05-16 06:06] LABS: PROBE CHECK PASS; SPECIMEN PROCESSING CONTROL PASS
[2017-05-16 09:08] LABS: POINT-OF-CARE METER ID UU14174217
[2017-05-16 12:03] LABS: POINT-OF-CARE METER ID UU14174217
[2017-05-16 17:08] LABS: POINT-OF-CARE METER ID UU14174217
[2017-05-17] VITALS (8 sets, daily range): BP systolic 97–117; BP diastolic 54–68
[2017-05-17 05:15] LABS: EOSINOPHIL (%) 0.1 % (0-5); HEMATOCRIT 26.4 % (36.0-46.0); IMMATURE GRANULOCYTE (%) 1.3 % (0.0-0.7); IMMATURE GRANULOCYTE COUNT 0.2 K/uL; INSTRUMENT ABS NEUTROPHIL CT 13.9 K/uL; LYMPHOCYTE COUNT 0.7 K/uL (1.0-2.8); MCH 31.6 PG (29.0-34.0); MCHC 32.6 G/DL (30.0-36.0); MCV 97.1 FL (83-99); MEAN PLAT.VOLUME 9.4 uM^3 (9.5-12.4); MONOCYTE (%) 3.8 % (3-12); MONOCYTE COUNT 0.6 K/uL (0-0.8); NEUTROPHIL (%) 90.3 % (45-76); NEUTROPHIL COUNT 13.9 K/uL (1.8-6.4); PLATELET COUNT 102 K/uL (156-360); RBC DIS.WIDTH-CV 15.6 % (11.8-14.6); RED BLOOD COUNT 2.72 M/uL (3.80-5.20); WHITE BLOOD COUNT 15.4 K/uL (4.1-10.2)
[2017-05-17 05:54] LABS: ANION GAP 9 MEQ/L (2-14); CHLORIDE 100 MEQ/L (99-109); GFR ESTIMATE (CALCULATED) 33 mL/min/; GLUCOSE 169 mg/dL (70-99); POTASSIUM 4.2 MEQ/L (3.7-5.4); SAMPLE HEMOLYSIS CHECK 0; SAMPLE ICTERIC CHECK 0; SAMPLE LIPEMIA CHECK 0; SODIUM 133 MEQ/L (136-147); UREA NITROGEN (BUN) 34 mg/dL (9-23)
== END 2017-05-17 09:38 | DRG 190 ==
LOC: EME 12:18 → 2EAST 15:57 → EDOF 15:57 → ENRESERV 15:59 → EDOF 16:06 → ENRESERV 16:29 → 2EAST 18:06 → ENRESERV 05-15 19:50 → 4EAST 05-15 20:03 → 4WEST 05-16 04:37 → ENRESERV 05-16 04:37 → 4WEST 05-16 05:37
PROVIDERS: Emergency Medicine; Hospitalist; Internal Medicine Critical Care Medicine; Nurse Practitioner Adult Health; Pediatrics; Surgery
DX: J44.0 Chronic obstructive pulmonary disease with (acute) lower respiratory infection (principal); J84.9 Interstitial pulmonary disease, unspecified; Z66 Do not resuscitate; Z51.5 Encounter for palliative care; J96.01 Acute respiratory failure with hypoxia; I95.9 Hypotension, unspecified; I10 Essential (primary) hypertension; E66.9 Obesity, unspecified; C34.92 Malignant neoplasm of unspecified part of left bronchus or lung; I25.10 Atherosclerotic heart disease of native coronary artery without angina pectoris; I25.2 Old myocardial infarction; Z87.891 Personal history of nicotine dependence; E78.5 Hyperlipidemia, unspecified; K21.9 Gastro-esophageal reflux disease without esophagitis; I48.91 Unspecified atrial fibrillation; C77.1 Secondary and unspecified malignant neoplasm of intrathoracic lymph nodes; D69.6 Thrombocytopenia, unspecified; T45.1X5A Adverse effect of antineoplastic and immunosuppressive drugs, initial encounter; D64.9 Anemia, unspecified; Z95.5 Presence of coronary angioplasty implant and graft; Z96.653 Presence of artificial knee joint, bilateral; Z68.39 Body mass index [BMI] 39.0-39.9, adult; R64 Cachexia; J84.112 Idiopathic pulmonary fibrosis; E11.9 Type 2 diabetes mellitus without complications
CPT/HCPCS: 36600; 71010; 71020; 71275; 80048; 80048 91; 80053; 80200; 82803; 82948; 83605; 83880; 84484; 85025; 85027; 85379; 87040; 87641; 93005; 94002; 94640; 94640 76; 94799; 99202; 99281; 99285; J0153; J1815; J1940; J1956; J2270; J3260; J7050